=== PATIENT | male | born 1955 | race Two or more races ===

== ENCOUNTER 2018-03-02 07:38 | Inpatient (IN) | payer MEDICAID ==
[~2018-03-02] VITALS: Ht 154.9 cm; Wt 104.7 kg
[2018-03-02 08:56] LABS: Basophils # (auto) 0.1 uL; Basophils % (auto) 1.8 % (0.0-2.0); Eosinophils # (auto) 0.1 uL; Hematocrit 43.8 % (41.0-53.0); Hemoglobin 15.4 g/dL (13.5-17.5); Lymphocytes # (auto) 1.1 uL; Lymphocytes % (auto) 16.9 % (10.0-50.0); Mean Corpuscular Hemoglobin 30.7 pg (28.0-32.0); Mean Corpuscular Hgb Conc. 35.1 g/dL (32.0-36.0); Mean Corpuscular Volume 87.5 fL (80.0-100.0); Monocytes # (auto) 0.5 uL; Monocytes % (auto) 7.1 % (0.0-12.0); Neutrophils # (auto) 4.7 uL; Neutrophils % (auto) 72.2 % (37.0-80.0); Nucleated Red Blood Cells % 0.5 %; Platelet Count (auto) 204 10^3/uL (140-450); Red Blood Cells 5.01 10^6/uL (4.5-5.90); Red Cell Distribution Width 12.5 % (11.8-14.3); White Blood Cell 6.5 10^3/uL (4.4-10.8)
[2018-03-02] MEDS ORDERED: CLOPIDOGREL BISULFATE 75 MG TAB PO ONE (09:00)
[2018-03-02 09:14] LABS: BUN/Creatinine Ratio 9.6; Calcium 8.4 mg/dL (8.5-10.1); Magnesium 2.2 mg/dL (1.6-2.6); Potassium 3.1 mmol/L (3.5-5.1)
[2018-03-02 10:01] LABS: INR 0.95 (0.9-1.15); Partial Thromboplastin Time 31.6 sec (23.78-33.04); Prothrombin Time 10.2 sec (9.27-12.13)
[2018-03-02] MEDS ORDERED: DEXTROSE (50%) 50ML SYRG IV PRN (10:30)
[2018-03-02] MEDS ORDERED: ASPirin 300 MG RECTAL SUPP PR ONE (10:30)
[2018-03-02] MEDS ORDERED: ONDANSETRON HCL 4 MG/2 ML VIAL IV PRN (10:45)
[2018-03-02] MEDS ORDERED: POTASSIUM CHL 20MEQ/100ML 100 ML IV ONE (10:45)
[2018-03-02] MEDS ORDERED: MORPHINE SULF INJ 2 MG/ML SYRINGE 1ML IV PRN ×2 (10:45)
[2018-03-02] MEDS ORDERED: NITROGLYCERIN 0.4 MG SL TAB SL PRN (10:45)
[2018-03-02] MEDS ORDERED: FAMOTIDINE (10MG/ML) 2ML VL IV ONE (10:45)
[2018-03-02] MEDS: SODIUM CHLORIDE 0.9% 1,000 ML IV SCH (11:08)
[2018-03-02] MEDS: InsuLIN REG 1unit/0.01ml Soln (100units/ml) SC SCH ×3 (12:00→23:51)
[2018-03-02] MEDS: LABETALOL HCL 5 MG/ML ML 20ML VIAL IV PRN ×4 (12:01→22:36)
[2018-03-02] MEDS: ACCU-CHEK COMFORT CURVE STRIP VI SCH ×3 (12:01→23:51)
[2018-03-02 13:16] LABS: Urine Bacteria NONE SEEN /hpf (None Seen); Urine Blood Negative /uL (Negative); Urine Specific Gravity 1.007 (1.001-1.035); Urine WBC 2 /hpf (0 - 3)
[2018-03-02 20:47] VITALS: BP 152/92
[2018-03-02 22:00] VITALS: BP 156/96
[2018-03-03 05:45] VITALS: BP 152/94
[2018-03-03] MEDS: ACCU-CHEK COMFORT CURVE STRIP VI SCH ×4 (05:45→23:10)
[2018-03-03] MEDS: InsuLIN REG 1unit/0.01ml Soln (100units/ml) SC SCH ×4 (05:46→23:10)
[2018-03-03 06:25] LABS: Albumin 3.4 g/dL (3.4-5.0); Calcium 8.3 mg/dL (8.5-10.1); Potassium 3.3 mmol/L (3.5-5.1)
[2018-03-03 06:27] LABS: BUN/Creatinine Ratio 14.3
[2018-03-03 06:30] LABS: Bilirubin, Total 0.7 mg/dL (0.2-1.0); Total Protein 7.4 g/dL (6.4-8.2)
[2018-03-03 06:47] LABS: Basophils # (auto) 0.1 uL; Basophils % (auto) 0.9 % (0.0-2.0); Eosinophils # (auto) 0.1 uL; Eosinophils % (auto) 1.9 % (0.0-7.0); Hematocrit 42.9 % (41.0-53.0); Hemoglobin 15.1 g/dL (13.5-17.5); Lymphocytes % (auto) 15.1 % (10.0-50.0); Mean Corpuscular Hemoglobin 31.5 pg (28.0-32.0); Mean Corpuscular Hgb Conc. 35.2 g/dL (32.0-36.0); Mean Corpuscular Volume 89.4 fL (80.0-100.0); Monocytes # (auto) 0.6 uL; Monocytes % (auto) 8.4 % (0.0-12.0); Neutrophils % (auto) 73.7 % (37.0-80.0); Nucleated Red Blood Cells % 0.1 %; Platelet Count (auto) 198 10^3/uL (140-450); Red Cell Distribution Width 12.4 % (11.8-14.3); White Blood Cell 6.8 10^3/uL (4.4-10.8)
[2018-03-03 08:00] VITALS: BP 179/105
[2018-03-03] MEDS: LABETALOL HCL 5 MG/ML ML 20ML VIAL IV PRN (08:46)
[2018-03-03 09:00] VITALS: BP 179/105
[2018-03-03] MEDS ORDERED: ASPirin 300 MG RECTAL SUPP PR SCH (10:00)
[2018-03-03] MEDS: SODIUM CHLORIDE 0.9% 1,000 ML IV SCH (10:04)
[2018-03-03] MEDS: FAMOTIDINE (10MG/ML) 2ML VL IV SCH (10:05)
[2018-03-03] MEDS: ENOXAPARIN SOD 40 MG/0.4 ML SYRINGE SC SCH (10:06)
[2018-03-03 12:47] VITALS: BP 150/90
[2018-03-03] MEDS ORDERED: LISINOPRIL 20 MG TAB PO ONE (14:00)
[2018-03-03] MEDS ORDERED: ASPirin 81 mg TAB PO ONE (14:00)
[2018-03-03] MEDS ORDERED: DEXTROSE (50%) 50ML SYRG IV PRN (14:00)
[2018-03-03] MEDS ORDERED: LORazepam 2MG/ML-1ML VIAL IV ONE (14:00)
[2018-03-03] MEDS ORDERED: LORazepam 2MG/ML-1ML VIAL ONE (14:10)
[2018-03-03 17:07] VITALS: BP 157/92
[2018-03-03 22:00] VITALS: BP 142/80
[2018-03-03] MEDS: ATORVASTATIN 20 MG TAB PO SCH (23:09)
[2018-03-04 05:30] VITALS: BP 145/81
[2018-03-04] MEDS: ACCU-CHEK COMFORT CURVE STRIP VI SCH ×4 (06:34→22:03)
[2018-03-04] MEDS: InsuLIN REG 1unit/0.01ml Soln (100units/ml) SC SCH ×4 (06:34→22:06)
[2018-03-04 07:02] LABS: BUN/Creatinine Ratio 16.5; Calcium 8.5 mg/dL (8.5-10.1); Potassium 3.4 mmol/L (3.5-5.1)
[2018-03-04 08:00] VITALS: BP 153/93
[2018-03-04 09:00] VITALS: BP 153/93
[2018-03-04] MEDS: FAMOTIDINE (10MG/ML) 2ML VL IV SCH (09:51)
[2018-03-04] MEDS: ASPirin 81 mg TAB PO SCH (09:54)
[2018-03-04] MEDS: LISINOPRIL 20 MG TAB PO SCH (09:56)
[2018-03-04] MEDS: ENOXAPARIN SOD 40 MG/0.4 ML SYRINGE SC SCH (09:57)
[2018-03-04] MEDS ORDERED: METOPROLOL TARTRATE 25 MG TAB PO ONE (12:45)
[2018-03-04] MEDS ORDERED: metFORMIN HYDROCHLORIDE 500 MG TAB PO ONE (12:45)
[2018-03-04 13:00] VITALS: BP 163/103
[2018-03-04] MEDS ORDERED: LISI-646 PO (13:02)
[2018-03-04] MEDS ORDERED: ATOR20TA PO (13:02)
[2018-03-04] MEDS ORDERED: AMLO5TAB13 PO (13:02)
[2018-03-04] MEDS ORDERED: ASPI325T4 PO (13:07)
[2018-03-04] MEDS ORDERED: METO-158 PO (13:07)
[2018-03-04] MEDS ORDERED: INSLANTI SC (13:07)
[2018-03-04] MEDS ORDERED: POTASSIUM CHL 20 Meq TABLET PO ONE (13:30)
[2018-03-04 17:00] VITALS: BP 155/90
[2018-03-04] MEDS: metFORMIN HYDROCHLORIDE 500 MG TAB PO SCH (17:47)
[2018-03-04 22:00] VITALS: BP 147/84
[2018-03-04] MEDS ORDERED: INSULIN LANTUS (GLARGINE) 1 /0.01ml (100units/ml) SC SCH (22:00)
[2018-03-04] MEDS ORDERED: METOPROLOL TARTRATE 25 MG TAB PO SCH (22:00)
[2018-03-04] MEDS: ATORVASTATIN 20 MG TAB PO SCH (22:01)
[2018-03-05] MEDS: LABETALOL HCL 5 MG/ML ML 20ML VIAL IV PRN (00:32)
[2018-03-05 05:00] VITALS: BP 156/95
[2018-03-05] MEDS: InsuLIN REG 1unit/0.01ml Soln (100units/ml) SC SCH ×2 (06:33→12:08)
[2018-03-05] MEDS: metFORMIN HYDROCHLORIDE 500 MG TAB PO SCH (06:34)
[2018-03-05] MEDS: ACCU-CHEK COMFORT CURVE STRIP VI SCH ×2 (06:34→12:09)
[2018-03-05 08:00] VITALS: BP 131/88
[2018-03-05 09:00] VITALS: BP 151/88
[2018-03-05] MEDS ORDERED: amLODIPine BESYLATE 5 MG TAB PO SCH (10:00)
[2018-03-05] MEDS ORDERED: METOPROLOL TARTRATE 25 MG TAB PO SCH (10:00)
[2018-03-05] MEDS: FAMOTIDINE (10MG/ML) 2ML VL IV SCH (10:04)
[2018-03-05] MEDS: ASPirin 81 mg TAB PO SCH (10:04)
[2018-03-05] MEDS: LISINOPRIL 20 MG TAB PO SCH (10:05)
[2018-03-05] MEDS: ENOXAPARIN SOD 40 MG/0.4 ML SYRINGE SC SCH (10:05)
[2018-03-05] MEDS ORDERED: ASPI325T4 PO (12:46)
[2018-03-05] MEDS ORDERED: METO-158 PO (12:46)
[2018-03-05] MEDS ORDERED: ATOR20TA PO (12:46)
[2018-03-05] MEDS ORDERED: AMLO5TAB13 PO (12:46)
[2018-03-05] MEDS ORDERED: METF500T PO (12:46)
[2018-03-05] MEDS ORDERED: LISI-646 PO (12:46)
[2018-03-05] MEDS ORDERED: INSLANTI SC (12:46)
[2018-03-05 13:00] VITALS: BP 147/94
[2018-03-05 15:59] VITALS: BP 147/94
[2018-03-05 16:56] VITALS: BP 153/97
== END 2018-03-05 17:04 | disposition home or self-care (01) | DRG 44 ==
LOC: ER 07:38 → EDBD 07:38 → TELE 07:39 → TELE-WESTW 18:36
PROVIDERS: ADMIT Internal Medicine; ATTEND Internal Medicine
DX: I61.3 Nontraumatic intracerebral hemorrhage in brain stem (principal); E66.01 Morbid (severe) obesity due to excess calories; E83.51 Hypocalcemia; R13.10 Dysphagia, unspecified; G93.89 Other specified disorders of brain; G81.94 Hemiplegia, unspecified affecting left nondominant side; E11.9 Type 2 diabetes mellitus without complications; I10 Essential (primary) hypertension; E78.5 Hyperlipidemia, unspecified; E87.6 Hypokalemia; R29.810 Facial weakness; Z83.3 Family history of diabetes mellitus; Z68.41 Body mass index [BMI] 40.0-44.9, adult
CPT/HCPCS: 36415; 70450; 70551; 71045; 80048; 80053; 80061; 81001; 82962; 83036; 83735; 83880; 84443; 84484; 85025; 85610; 85730; 87086; 92610; 93005; 93306; 93886; 96374; 97116; 97163; 97530; J1815; J3480; J3490